=== PATIENT | male | born 1930 | race Caucasian/White ===

== ENCOUNTER → 2016-09-17 | Day surgery (SDC) | payer MEDICARE, OTHER ==
[~2016-09-17] VITALS: Ht 177.8 cm; Wt 93.0 kg
[~2016-09-17] MED LIST: 0.9% Sodium Chloride 1,000 ML IV SCH; APIX5TAB PO; ASPI-973 PO; ATOR80TA77 PO; CARV25TA2 PO; LISI-567 PO; Lactated Ringer's 1,000 ML IV ONE; Lactated Ringer's 1,000 ML IV SCH; MetoCLOpramide 5 mg/mL 2 mL Inj IVPUSH PRN; Ondansetron 2 mg/mL 2 mL Inj IVPUSH PRN; Propofol 10,000 mCg/mL 20 mL Inj ONE; SILD50TA PO; Sodium Chloride LOK Flush 10 mL Syringe IV PRN; fentaNYL-PF 50 mCg/mL 2 mL Inj IVPUSH PRN
[2016-09-17 10:25] VITALS: BP 141/82; PULSE 96; RESP 14; O2SAT 97
--- NOTE | 2016-09-17 11:06 | PCM.HPANE ---
Patient Data Surgeon Admitting Provider: Attending Provider:Magdalena Kay MD Primary Care Physician:Sarah Schaefer PA-C Other Provider:Louie Cortes Anesthesia Reason for Visit Tubular Adenoma Of Rectum Ht/WT & BMI Height (Feet): 5 Height (Inches): 10 Weight (Kilograms): 93 Body Mass Index 29.00 Allergies Coded Allergies: No Known Allergies (Verified , 09/17/16) Uncoded Allergies: NKA (Allergy, Unknown, 01/26/05) No Known Allergies (Allergy, Unknown, 01/26/05) Past Anesthesia History Anesthesia History: Denies:: Abnormal Airway, Anesthesia Reactions, Difficult Intubation, Fam Anesthesia Reaction, Fam Malignant Hypertherm, Malignant Hyperthermia Diabetes History Hx Diabetes?: No MRSA MRSA: No Medications Blood Thinner: Xarelto Last Dose Blood Thinner: Sep 14, 2016 Home Meds Incl Beta Michelle: Yes Date Beta Michelle Taken: Sep 16, 2016 Time Beta Michelle Taken: 1600 Reported Medications Apixaban (Eliquis)5 Mg Tablet5 Mg PO 08/13/16 Aspirin 81 Mg [place]16 Mg PO DAILY Ref 0 09/26/14 Lisinopril 20 Mg Bioudq74 Mg PO BID 30 Days Ref 0 08/14/14 Atorvastatin Calcium 80 Mg Iqjxtf21 Mg PO Every Other Day 30 Days Ref 0 08/14/14 Sildenafil Citrate (Viagra)50 Mg Ncbyjm28 Mg PO UD PRN ED Ref 0 08/14/14 Carvedilol 25 Mg Zuqqrm03 Mg PO BID 30 Days Ref 0 08/14/14 History History of ENT Problems?: No HEENT History: Denies:: Abnormal Airway Difficult Intubation Dysphagia Hearing Problem Denture Type: None Teeth Condition: Within Normal Limits Hx of Heart Problems?: Yes Cardiovascular History: Positive for:: Atrial Fibrillation Cardiac Surgery (2 stents 12 yrs ago) Hypertension Irregular Heartbeat (Afib on coumadin) Denies:: AICD Chest Pain Pacemaker Valvular Heart Disease Hx of Respiratory Problem?: No Respiratory History: Denies:: Asthma COPD Cough Hemoptysis Pneumonia Tuberculosis Hx Neurologic Problems?: No Neurological History: Denies:: CVA Hx of GI Problems?: Yes Hx of Problems?: No Male Hx: Positive for:: Prostate Problems Hx Musculoskeletal Problems?: Yes Musculoskeletal History: Positive for:: Back Injury (back pain) Denies:: Fibromyalgia Joint Replacement Hx of Psycho/Social Problems?: No Psycho Social History: Positive for:: Anxiety Denies:: Hx Depression Hx Surgeries?: Yes (colon resection(23 INCHES), cardiac stents) Hx Any Other Health Problems?: Yes Other History: Positive for:: Cancer (colon cancer w/partial colectomy) Hospitalization History Blood Transfusions: Denies:: Blood Transfuse Reaction Blood Transfusions Hx Diabetes: No Hx Alcohol Use: Yes (occas) Smoking Status: Never Smoker Have You Smoked inLast 12 mo: No Stop/Bang Treated for Sleep Apnea?: No Do You Have a CPAP Machine?: No S-Snoring: Do You Snore Loudly: Yes T-Tired: feel tired, fatigued: Yes O-Obsered: Observed not breath: Yes P-Blood Pressure: treated: Yes B- Body Mass Index > 35 kg/m2: Yes A- Age over 50: Yes N- Neck Large Circumference: No G- Gender Male: Yes BENEDICT Total Score: 7 BENEDICT Risk Assessment: High Risk, =/>3 Yes BENEDICT Category 4 OutPt Procedure: Yes Risk Assessment Category Category 1A: Patient has history of documented sleep apnea, and HAS NOT received any narcotic, sedative or anesthesia administration during this stay. Category 1B: Patient has history of documented sleep apnea, and HAS received any narcotic , sedative or anesthesia administration during this stay Category 2: Patient has SUSPECTED Obstructive Sleep Apnea, and HAS received any narcotic , sedative or anesthesia administration during this stay. Category 3: Patient has SUSPECTED Obstructive Sleep Apnea and HAS NOT received narcotic, sedative or anesthesia administration during this stay. Category 4: Outpatient in Procedural Areas with known sleep apnea or who screen positive for High Risk via the STOP/BANG questionnaire. Exam Exam Vital Signs Vital Signs Date Time Temp Pulse Resp B/P Pulse Ox O2 Delivery O2 Flow Rate FiO2 09/17/16 10:25 36.6 96 14 141/82 97 Room Air General Appearance: Alert HEENT/AIRWAY: MP 3, Neck Movement (FROM, 3 FB) Lungs: Clear to Auscultation Heart: Other (IRREGULAR) Plan Impression Patient chart reviewed, patient interviewed and anesthestic plan with risks, benefits, and alternatives discussed, and informed consent obtained. NPO per Anesth. Guidelines: Yes ASA Physical Status: ASA3 Severe Disease Anesthetic Plan: MAC Bene/Risks/Altern/Consents: Yes HP Complete Prior to Induction: Yes Sachin Canales MD Sep 17, 2016 10:42
[2016-09-17 11:24] VITALS: BP 113/71; PULSE 88; RESP 16; O2SAT 98
--- NOTE | 2016-09-17 11:30 | PCM.ANEP1 ---
Post Anesthesia PACU Phase 1 Assessment Vital Signs Vital Signs Date Time Temp Pulse Resp B/P Pulse Ox O2 Delivery O2 Flow Rate FiO2 09/17/16 11:24 35.8 88 16 113/71 98 Room Air 09/17/16 10:25 36.6 96 14 141/82 97 Room Air Anesthetic Administered: MAC Level of Alertness: Awake, talking FUENTES's with Equal Strength: Yes Pain: No Nausea or Vomiting: No CV Function & Hydration Stable: Yes Airway Device: Oxygen Delivery: Room Air Lungs: Clear to Auscultation Dermatome Level: Full Sensation PACU Phase 2 Assessment Complications: No Follow up Care: N/A Patient Instructions Provided: N/A Sachin Canales MD Sep 17, 2016 11:30
[2016-09-17 11:44] VITALS: BP 146/71; PULSE 95; RESP 12; O2SAT 96
--- NOTE | 2016-09-17 11:46 | ENDO ---
[address] [address] ENDOSCOPY PROCEDURE PATIENT: AJITH ARIAS : 1930 MR#: [id number] ADMIT: 09/17/2016 JOB ID: [id number] CORRECTED REPORT DATE 09/17/2016 PROCEDURE: Colonoscopy. 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 Please see Dr. Mitesh Canales's anesthesia report for details regarding ASA classification, Mallampati score, and medications. INSTRUMENT USED: [id number] PREP QUALITY: Good. PROCEDURE IN DETAILS: After informed consent was obtained, the patient was brought into the GI suite, where he was placed on oxygen via nasal cannula and monitored with continuous pulse oximeter, telemetry, and blood pressure monitoring. A time-out was performed. Then, he was placed in a left lateral decubitus position and medications were administered for sedation. Digital rectal exam was performed which was unremarkable. The colonoscope was then inserted into the rectum and advanced to approximately 30 cm. At this point, there was solid and semi-solid stool making visualization difficult. We were unable to suction and clear this area and at this point the colonoscope was then withdrawn back into the rectum and in the rectum retroflexion was performed. Following retroflexion, remaining air in the rectum was suctioned, and procedure was completed. FINDINGS: 1. In the distal sigmoid colon there was a diminutive polyp that was removed with cold biopsy forceps. 2. In the mid rectum there was a scar present consistent with a previous polypectomy site. Multiple biopsies were obtained at the scar site. IMPRESSION: 1. Distal sigmoid polyp. 2. Scar at previous polypectomy site in mid rectum. RECOMMENDATIONS: 1. Await biopsy results. 2. Colonoscopy in one year. 3. Okay to restart anticoagulation. COMPLICATIONS: None. ESTIMATED BLOOD LOSS: Less than 5 mL. Corrected by GS 09/23/16 at 7:51am DOS. MTDD
[2016-09-17 11:49] VITALS: BP 151/90; PULSE 80; RESP 12; O2SAT 97
--- NOTE | 2016-09-18 18:47 | PATH ---
SURGICAL PATHOLOGY Attending Physician:Dimitri Rodriguez CASE STATUS: Signed Out PATIENT NAME: AJITH ARIAS PID: [id number] : 1930 DATE COLLECTED:09/17/2016 21:45 SPECIMEN: 1: Colon, Polyp 2: Rectum, Biopsy CLINICAL HISTORY: 1). SIGMOID POLYP X1 2). RECTAL SCAR BIOPSY FINAL DIAGNOSIS: 1.SIGMOID COLON, POLYP, BIOPSY: HYPERPLASTIC POLYP. 2.RECTUM, SCAR, BIOPSY: RECTAL MUCOSA WITH NO SIGNIFICANT DIAGNOSTIC ABNORMALITY. Negative for dysplasia and malignancy. ICD10 K63.5 GROSS DESCRIPTION: Received two formalin-filled containers, each labeled with the patient' s name. 1. Received in formalin, labeled with the patient' s name and "sigmoid polyp", is one fragment of garcia, soft tissue measuring 0.2 x 0.2 x 0.2 cm. The fragment is totally submitted in cassette 1A. 2. Received in formalin, labeled with the patient' s name and "rectal scar biopsy", are two fragments of garcia, soft tissue ranging from 0.3 x 0.1 x 0.1 cm to 0.4 x 0.1 x 0.1 cm. The fragments are totally submitted in cassette 2A. [id number]) MICRO DESCRIPTION: See diagnosis. ICD-9 CODES: CPT CODES: 1: 12004 2: 25071 Electronically Signed Out Catherine Lennon MD [facility] Pathology [facility] [address], [place] [address] Technical component performed at [facility], [address] [place] [address] Ave[address], [place], [address]
== END | disposition home or self-care (01) ==
LOC: END 08-13 01:21
PROVIDERS: ATTEND Internal Medicine Gastroenterology
DX: Z12.11 Encounter for screening for malignant neoplasm of colon (principal); Z86.010 Personal history of colon polyps; K63.5 Polyp of colon; I12.9 Hypertensive chronic kidney disease with stage 1 through stage 4 chronic kidney disease, or unspecified chronic kidney disease; I25.10 Atherosclerotic heart disease of native coronary artery without angina pectoris; I35.1 Nonrheumatic aortic (valve) insufficiency; I48.0 Paroxysmal atrial fibrillation; I77.9 Disorder of arteries and arterioles, unspecified; E78.5 Hyperlipidemia, unspecified; G20 Parkinson's disease; J44.9 Chronic obstructive pulmonary disease, unspecified; F41.9 Anxiety disorder, unspecified; N18.9 Chronic kidney disease, unspecified; Z85.038 Personal history of other malignant neoplasm of large intestine; Z85.46 Personal history of malignant neoplasm of prostate; Z95.5 Presence of coronary angioplasty implant and graft; Z79.82 Long term (current) use of aspirin; Z79.01 Long term (current) use of anticoagulants
CPT/HCPCS: 45331; 88305; J7120